=== PATIENT | female | born 1985 | race Caucasian/White ===

== ENCOUNTER 2019-05-22 16:03 | Outpatient (CLI) | payer BC ==
--- NOTE | 2019-05-23 19:58 | Ultrasound Report ---
Reason: PELVIC PAIN FEMALE Procedure Date: 05/22/2019 Accession Number: [id number] / [id number] Procedure: US - Pelvic w/Transvaginal CPT Code: FULL RESULT: EXAM: PELVIC ULTRASOUND EXAM DATE: 05/22/2019 05:40 PM. CLINICAL HISTORY: PELVIC PAIN FEMALE. Right groin pain. History of hernia repair. COMPARISON: None. TECHNIQUE: Realtime transabdominal pelvic scan performed to identify the uterus and adnexa and as an overview of other pelvic structures, followed by transvaginal scan to provide greater detail of the uterus and adnexa, with static image documentation. FINDINGS: Uterus: 10.1 x 4.2 x 5.4 cm, volume 119 cc. Retroverted and retroflexed position. Normal overall size and echotexture. Masses: 2.4 x 1.8 x 2.4 cm fundal anterior intramural fibroid Endometrium: 7 mm. Normal. Cervix: Unremarkable. Right Ovary: 3.2 x 2.3 x 3 cm, volume 11.5 cc. Normal echotexture and blood flow. Left Ovary: 4.9 x 1.5 x 4.1 cm, volume 15.5 cc. Normal echotexture and blood flow. Free Fluid: None. Other: In the right groin at the area of palpable pain there is a 0.6 x 0.4 x 0.5 cm round avascular superficial hypoechoic focus question lymph node or related to prior hernia repair. IMPRESSION: Minor myomatous change of the uterus. No acute findings in the pelvis. Small round avascular superficial hypoechoic nodule right groin in the area of palpable pain, question lymph node or related to prior surgery.. [facility]
== END 2019-05-22 16:04 | disposition home or self-care (01) ==
LOC: DI 16:03
PROVIDERS: ATTEND Obstetrics & Gynecology
DX: D25.1 Intramural leiomyoma of uterus (principal); R19.03 Right lower quadrant abdominal swelling, mass and lump
CPT/HCPCS: 76830; 76856